=== PATIENT | male | born 1955 ===

== ENCOUNTER 2020-10-25 08:04 | Day surgery (SDC) | payer OTHER | END 2020-10-25 13:30 | disposition home or self-care (01) | LOC: AMB-ENDOS 08:04 | PROVIDERS: ATTEND Surgery | DX: D12.2 Benign neoplasm of ascending colon (principal); D12.3 Benign neoplasm of transverse colon; K64.8 Other hemorrhoids; Z20.822 Contact with and (suspected) exposure to COVID-19 ==